=== PATIENT | female | born 1990 | race Caucasian/White ===

== ENCOUNTER 2019-05-16 02:10 | Inpatient (IN) ==
[2019-05-16] MEDS ORDERED: OXYTOCIN 30 UNITS/500 ML BAG IV PRN ×2 (02:50→06:53)
[2019-05-16 03:21] LABS: Hematocrit (blood only) 40.1 % (37-47); Hemoglobin 14.1 g/dL (12.0-16.0); Mean Corpuscular Hemoglobin 32.4 pg (25-34); Mean Corpuscular Volume 92.2 fL (80-100); Mean Platelet Volume 11.9 fL (7.4-10.4); Platelet Count 134 K/uL (130-400); RDW Coefficient of Variation 13.3 % (11.5-14.5); RDW Standard Deviation 44.4 fL (36.4-46.3); Red Blood Count 4.35 M/uL (4.2-5.4); White Blood Count 9.47 K/uL (4.8-10.8)
[2019-05-16 03:23] LABS: Mean Corpuscular Hgb Conc 35.2 g/dL (32-36)
[2019-05-16] MEDS: LACTATED RINGER'S 1,000 ML IV PRN ×2 (03:24→04:55)
[2019-05-16] MEDS ORDERED: ePHEDrine sulfate 50 MG/ML AMP ONE (03:42)
[2019-05-16] MEDS ORDERED: BUPIVACAINE 0.25% 30 ML VIAL ONE (03:42)
[2019-05-16] MEDS ORDERED: fentaNYL citrate 100 MCG/2 ML VIAL ONE (03:42)
[2019-05-16] MEDS ORDERED: fentaNYL 2MCG/ML ROPIV 1.25MG/ML 100 ML BAG EPI ONE (03:43)
--- NOTE | 2019-05-16 03:55 | Obstetrical Progress Note ---
Date of Service May 16, 2019 Subjective Admit Note 29 F P0000 at 39.5 weeks admitted in labor with SROM light meconium. FHT Cat 1. GBS is negative. Cervix 4/80/--/vertex. will admit and patient requesting epidural. Results & Data Vital Signs (Past 12 Hours) Vital Signs Temp Pulse Resp BP Pulse Ox 05/16/19 03:47 81 98 05/16/19 03:45 81 143/87 H 05/16/19 03:17 75 136/89 05/16/19 02:43 93 H 159/115 H 05/16/19 02:34 86 155/113 H 05/16/19 02:28 83 160/109 H 05/16/19 02:27 37 C 83 18 05/16/19 02:19 37.0 C 18 05/16/19 02:18 89 155/104 H
--- NOTE | 2019-05-16 04:00 | Anesthesiology Consultation ---
Date of Service May 16, 2019 Assessment & Plan (1) Encounter for pre-operative examination: Chart Review Chart Review: Acceptable Risk for Labor Epidural History Height/Weight Height: 5 ft 3 in Weight: 83.007 kg Allergies Allergy/AdvReac Type Severity Reaction Status Date / Time No Known Allergies Allergy Verified 05/16/19 02:22 Medications Home Medications Medication Instructions Recorded Confirmed Last Taken PNV cmb#95-ferrous fumarate-FA 1 tab PO DAILY 05/16/19 05/16/19 05/15/19 09:00 [] Active Medications Generic Name Dose Route Start Last Admin Trade Name Freq PRN Reason Stop Dose Admin Lactated Ringer's 1,000 mls @ 125 mls/hr 05/16/19 02:50 05/16/19 03:24 Lr IV 05/18/19 02:49 999 mls/hr .Q8H PRN Administration L&D Protocol Protocol Past Medical History Medical History Broken wrist at age 12 H/O wisdom tooth extraction at age 16 Past Family History Family History Mother Preeclampsia Social History Smoking Status: Never smoker Hx Alcohol Use: No Hx Substance Use: No Physical Exam Vital Signs Last Vital Signs Temp 37 C 05/16/19 02:27 Pulse 94 H 05/16/19 03:57 Resp 18 05/16/19 02:27 BP 143/87 H 05/16/19 03:45 Pulse Ox 97 05/16/19 03:57 Testing Laboratory Results 05/16/19 03:02
[2019-05-16] MEDS ORDERED: NALOXONE HCL 0.4 MG/1 ML VIAL/CARP IV PRN (04:27)
[2019-05-16] MEDS ORDERED: fentaNYL 2MCG/ML ROPIV 1.25MG/ML 100 ML BAG EPI PRN (04:27)
[2019-05-16] MEDS ORDERED: NALOXONE HCL 1 MG in SODIUM CHLORIDE 0.9% 1000ML 1,000 ML IV PRN (04:27)
[2019-05-16] MEDS ORDERED: ONDANSETRON INJ 2 MG/ML 2 ML VIAL IV PRN (04:27)
[2019-05-16] MEDS ORDERED: ePHEDrine sulfate 50 MG/ML AMP IV PRN (04:27)
[2019-05-16] MEDS ORDERED: miSOPROStoL 200 MCG TAB ONE (06:51)
[2019-05-16] MEDS ORDERED: SUPERCREAM 0.870% 15 GM JAR EXT PRN (06:53)
[2019-05-16] MEDS ORDERED: ACETAMINOPHEN W/CODEINE #3 1 TAB PO PRN (06:53)
[2019-05-16] MEDS ORDERED: miSOPROStoL 200 MCG TAB PR ONE (06:53)
[2019-05-16] MEDS ORDERED: ACETAMINOPHEN 325 MG TAB PO PRN (06:53)
[2019-05-16] MEDS ORDERED: bisacodyL 10 MG SUPP PR PRN (06:53)
[2019-05-16] MEDS ORDERED: HYDROCORTISONE ACETATE 25 MG SUPP PR PRN (06:53)
[2019-05-16] MEDS ORDERED: DIPHTHERIA/TETANUS/PERTUSSIS 0.5 ML SYR/VIAL IM ONE (06:53)
[2019-05-16] MEDS ORDERED: BENZOCAINE 20% AER SPR 82.5 GM CAN EXT PRN (06:53)
[2019-05-16] MEDS ORDERED: OXYCODONE/ACETAMINOPHEN 5mg/325mg TAB PO PRN (06:53)
--- NOTE | 2019-05-16 07:26 | Delivery Summary ---
DATE OF OPERATION: 05/16/2019 DELIVERY NOTE: The patient delivered a live in left occiput anterior presentation. The head was delivered. There was no nuchal cord. was delivered and placed on mother's abdomen. Cord was clamped after 1 minute. Cord blood was obtained. Placenta was spontaneously delivered. Inspection of the placenta showed some meconium-stained placenta with 3-vessel cord. Inspection of the perineum shows a right labial laceration which was repaired with 2-0 Vicryl. There was good hemostasis post repair. Rectal exam post repair showed good sphincter tone. Estimated blood loss is 400 mL. Baby and mother are doing well in recovery. Details of infant's information is in the pediatric record. Weight is pending. Apgars 9. All instruments were removed from the vagina and accounted for x2 including sponges, retractors, and sutures. I attest to the content of the Intraoperative Record and any orders documented therein. Any exception s are noted below.
[2019-05-16 07:39] LABS: Albumin Level 2.4 gm/dl (3.4-5.0); BUN Creatinine Ratio 11.3 (10-20); Calcium 8.2 mg/dl (8.5-10.1); Creatinine Clr Calc Pharmacy 103.9 ml/min; Est GFR (Non-African American) 96.6; Potassium 3.9 mmol/L (3.5-5.1)
[2019-05-16 07:41] LABS: Albumin Globulin Ratio 0.6 (0.9-2); Bilirubin,Total 0.3 mg/dl (0.2-1); Total Protein 6.4 gm/dl (6.4-8.2)
--- NOTE | 2019-05-16 07:52 | Anesthesia Procedure Note ---
Date of Service May 16, 2019 Anesthesia Post Epidural Note Vital Signs Vital Signs: Temp Pulse Resp BP Pulse Ox 37.4 C 97 H 18 165/81 H 95 05/16/19 06:53 05/16/19 07:43 05/16/19 07:10 05/16/19 07:43 05/16/19 06:42 Notes Mental Status: alert / awake / arousable Nausea / Vomiting: adequately controlled Pain: adequately controlled Airway Patency, RR, SpO2: stable & adequate BP & HR: stable & adequate Hydration State: stable & adequate Neuraxial Anesthesia: was administered and sensory block is resolving Anesthetic Complications: no major complications apparent and Pt Satisfied with anesthetic care Epidural: Removed without complications and With tip intact
[2019-05-16] MEDS: DOCUSATE SODIUM 100 MG CAP PO SCH ×2 (08:56→20:17)
[2019-05-16] MEDS: PRENATAL VITAMIN 1 TAB PO SCH (08:56)
[2019-05-16] MEDS: LABETALOL HCL 100 MG TAB PO SCH ×2 (08:56→20:17)
[2019-05-16] MEDS: IBUPROFEN 600 MG TAB PO PRN (19:01)
[2019-05-17] MEDS: IBUPROFEN 600 MG TAB PO PRN ×2 (00:11→12:20)
[2019-05-17 06:25] LABS: Hemoglobin 11.8 g/dL (12.0-16.0); Mean Corpuscular Hemoglobin 32.1 pg (25-34); Mean Corpuscular Hgb Conc 34.7 g/dL (32-36); Mean Corpuscular Volume 92.4 fL (80-100); Mean Platelet Volume 10.8 fL (7.4-10.4); Platelet Count 111 K/uL (130-400); RDW Coefficient of Variation 13.7 % (11.5-14.5); Red Blood Count 3.68 M/uL (4.2-5.4); White Blood Count 8.25 K/uL (4.8-10.8)
--- NOTE | 2019-05-17 08:28 | Obstetrical Progress Note ---
Date of Service May 17, 2019 Subjective Patient is seen and examined. She feels well, no complaints. Likes to be discharged Ambulating without dizziness Voiding without difficulty Tolerating regular diet with out N&V Bleeding is minimal No fever/ chills/ CP/ SOB/ N&V/ Leg pain Breast feeding without problems Vital Signs Temp Pulse Pulse Resp BP Pulse Ox 05/17/19 07:58 36.7 C 78 18 129/66 96 05/17/19 03:55 36.5 C 82 16 133/89 05/16/19 23:55 36.7 C 90 18 125/88 Lab Results 05/16/19 05/16/19 05/16/19 Range/Units 03:02 03:13 07:08 WBC 9.47 (4.8-10.8) K/uL RBC 4.35 (4.2-5.4) M/uL Hgb 14.1 (12.0-16.0) g/dL Hct 40.1 (37-47) % MCV 92.2 (80-100) fL MCH 32.4 (25-34) pg MCHC 35.2 (32-36) g/dL RDW Std Deviation 44.4 (36.4-46.3) fL RDW Coeff of [place] 13.3 (11.5-14.5) % Plt Count 134 (130-400) K/uL MPV 11.9 H (7.4-10.4) fL Sodium 138 (136-145) mmol/L Potassium 3.9 (3.5-5.1) mmol/L Chloride 111 H (98-107) mmol/L Carbon Dioxide 18 L (21-32) mmol/L Anion Gap 9.0 (3-11) BUN 9 (7-18) mg/dl Creatinine 0.83 (0.6-1.2) mg/dl Est Cr Clr Drug Dosing 103.9 ml/min Est GFR ( Amer) 112.0 Est GFR (Non-Af Amer) 96.6 BUN/Creatinine Ratio 11.3 (10-20) Glucose 86 (70-99) mg/dl Calcium 8.2 L (8.5-10.1) mg/dl Total Bilirubin 0.3 (0.2-1) mg/dl AST 15 (15-37) U/L ALT 11 L (12-78) U/L Alkaline Phosphatase 137 H (45-117) U/L Total Protein 6.4 (6.4-8.2) gm/dl Albumin 2.4 L (3.4-5.0) gm/dl Globulin 4.0 (2.5-4.0) gm/dl Albumin/Globulin Ratio 0.6 L (0.9-2) Amniotic Protein NEG 05/17/19 Range/Units 06:08 WBC 8.25 (4.8-10.8) K/uL RBC 3.68 L (4.2-5.4) M/uL Hgb 11.8 L (12.0-16.0) g/dL Hct 34.0 L (37-47) % MCV 92.4 (80-100) fL MCH 32.1 (25-34) pg MCHC 34.7 (32-36) g/dL RDW Std Deviation 46.0 (36.4-46.3) fL RDW Coeff of [place] 13.7 (11.5-14.5) % Plt Count 111 L (130-400) K/uL MPV 10.8 H (7.4-10.4) fL Sodium (136-145) mmol/L Potassium (3.5-5.1) mmol/L Chloride (98-107) mmol/L Carbon Dioxide (21-32) mmol/L Anion Gap (3-11) BUN (7-18) mg/dl Creatinine (0.6-1.2) mg/dl Est Cr Clr Drug Dosing ml/min Est GFR ( Amer) Est GFR (Non-Af Amer) BUN/Creatinine Ratio (10-20) Glucose (70-99) mg/dl Calcium (8.5-10.1) mg/dl Total Bilirubin (0.2-1) mg/dl AST (15-37) U/L ALT (12-78) U/L Alkaline Phosphatase (45-117) U/L Total Protein (6.4-8.2) gm/dl Albumin (3.4-5.0) gm/dl Globulin (2.5-4.0) gm/dl Albumin/Globulin Ratio (0.9-2) Amniotic Protein PE: General: Alert, orientedx3, NAD Abd: soft, NT, fundus firm, below Umbilicus Perineum intact, Lochia rubra minimal Ext; NT, no edema AP: 29 yo s/p , ppd# 1 VSS Afebrile doing well Continue routine care All questions were answered D/C home if baby will be discharged Results & Data Vital Signs (Past 12 Hours) Vital Signs Temp Pulse Pulse Resp BP Pulse Ox 05/17/19 07:58 36.7 C 78 18 129/66 96 05/17/19 03:55 36.5 C 82 16 133/89 05/16/19 23:55 36.7 C 90 18 125/88
[2019-05-17] MEDS: PRENATAL VITAMIN 1 TAB PO SCH (08:48)
[2019-05-17] MEDS: DOCUSATE SODIUM 100 MG CAP PO SCH ×2 (08:48→20:38)
[2019-05-17] MEDS: LABETALOL HCL 100 MG TAB PO SCH ×2 (08:48→20:38)
[2019-05-17] MEDS ORDERED: bisacodyL 5 MG TABEC PO SCH (20:00)
[2019-05-18 06:51] LABS: Hematocrit (blood only) 36.2 % (37-47); Hemoglobin 12.2 g/dL (12.0-16.0)
[2019-05-18] MEDS: DOCUSATE SODIUM 100 MG CAP PO SCH (08:42)
[2019-05-18] MEDS: PRENATAL VITAMIN 1 TAB PO SCH (08:42)
[2019-05-18] MEDS: LABETALOL HCL 100 MG TAB PO SCH (08:43)
[2019-05-18] MEDS: IBUPROFEN 600 MG TAB PO PRN (11:21)
--- NOTE | 2019-05-18 12:20 | Obstetrical Progress Note ---
Date of Service May 18, 2019 Physical Exam Physical Exam: abdomen soft and non tender vaginal bleeding scant hgb 12.2 no calf tenderness ambulating well Results & Data Vital Signs (Past 12 Hours) Vital Signs Temp Pulse Resp BP Pulse Ox 05/18/19 08:20 36.9 C 99 H 16 133/89 95
== END 2019-05-18 14:25 | disposition home or self-care (01) | DRG 807 ==
LOC: OPB 02:10 → 4S1 02:12 → 4S2 10:21